=== PATIENT | female | born 1995 ===

== ENCOUNTER 2018-04-09 13:56 | Emergency (ER) | payer BC ==
[~2018-04-09 13:56] MED LIST: CLON-327 PO; DES100PT PO; SULF-198 PO
--- NOTE | 2018-04-09 14:05 | ER Report ---
History and Physical Time Seen By MD: 14:04 HPI/ROS CHIEF COMPLAINT: Adverse reaction to medication HISTORY OF PRESENT ILLNESS: This is a 22-year-old female who presents to the emergency department for concerns of medication reaction. Patient states that 3 days ago she tapered off of her Paxil with her psychologist, then they started Weimert him 2 days ago since then she's had increased dizziness, feels like her skin is crawling, intermittent nausea no vomiting. Patient has been very tearful. Has had episodes of insomnia since starting the medication. Patient decided come in for further evaluation. No chest pain or shortness of breath. No fevers or chills. No suicidal or homicidal thoughts. REVIEW OF SYSTEMS: Constitutional: No fever, no chills. Eyes: No discharge. ENT: No sore throat. Cardiovascular: No chest pain, no palpitations. Respiratory: No cough, no shortness of breath. Gastrointestinal: No abdominal pain, no vomiting. Genitourinary: No hematuria. Musculoskeletal: No back pain. Skin: No rashes. Neurological: As above. Allergies: Coded Allergies: Penicillins (Verified Allergy, Intermediate, HIVES, 01/13/16) mold (Verified Allergy, Intermediate, SOB, 01/13/16) Uncoded Allergies: DUST MITES (Allergy, Intermediate, SOB, 01/13/16) Home Meds Reported Medications Linaclotide (Linzess) 72 Mcg Capsule 04/09/18 Vilazodone Hydrochloride (VIIBRYD) 10 Mg Tablet, 5 MG PO 04/09/18 Discontinued Reported Medications Desvenlafaxine Succinate (PRISTIQ ER) 100 Mg Tabcr, 100 MG PO DAILY 01/13/16 Clonidine Hcl (CLONIDINE HCL) 0.1 Mg Tablet, 0.5 TAB PO HS, TAB 01/13/16 Discontinued Scripts Sulfamethoxazole/Trimet 800-160 Mg Tab (BACTRIM DS TABLET) 1 Each Tablet, 1 TAB PO Q12H, #10 MG 0 Refills TAKE ONE TABLET BY MOUTH EVERY TWELVE HOURS Prov:ANDREW SALAZAR MD 01/13/16 Past Medical/Surgical History The patient has a past medical and surgical history of depression and wears glasses. Anxiety. Unable To Obtain Past Medical: Refused Hx Smoking: No Smoking Status: Never Smoker Hx Substance Use Disorder: No Hx Alcohol Use: No Constitutional Vital Sign - Last 24 Hours 10/06/1504/09/18 04/09/18 04/09/18 14:01 14:01 14:11 14:26 Temp 97.5 Pulse 65 71 ??? Resp 14 B/P (MAP) 110/77 110/77 (88) Pulse Ox 98 100 98 O2 Delivery Room Air 04/09/18 04/09/18 04/09/18 04/09/18 14:41 14:56 15:11 15:26 Pulse ? 59 64 Pulse Ox 99 97 04/09/18 04/09/18 04/09/18 04/09/18 15:41 15:42 15:47 16:00 Pulse 73 75 B/P (MAP) 110/85 (93) 102/74 (83) Pulse Ox 100 100 04/09/18 04/09/18 04/09/18 04/09/18 16:02 16:17 16:30 16:32 Pulse 74 75 76 B/P (MAP) 96/69 (78) Pulse Ox 100 95 95 04/09/18 04/09/18 04/09/18 04/09/18 16:47 17:00 17:02 17:17 Pulse 78 72 ??? B/P (MAP) 98/64 (75) Pulse Ox 96 97 99 04/09/18 04/09/18 17:30 17:32 Pulse ??? B/P (MAP) ???/??? (1665) Physical Exam General Appearance: The patient is alert, has no immediate need for airway protection and no signs of toxicity, tearful. Eyes: Pupils equal and round no pallor or injection. ENT, Mouth: Mucous membranes are moist. Respiratory: There are no retractions, lungs are clear to auscultation. Cardiovascular: Regular rate and rhythm. Gastrointestinal: Abdomen is soft and non tender, no masses, bowel sounds normal. Neurological: Alert and oriented 4. Moving all extremities. Following all commands. No focal neuro deficits. Skin: Warm and dry, no rashes. Musculoskeletal: Neck is supple non tender. Extremities are nontender, nonswollen and have full range of motion. Psychological: Very tearful, anxious and fearful of the medications that she is taken. She does make intermittent eye contact. DIFFERENTIAL DIAGNOSIS: After history and physical exam differential diagnosis was considered for medication reaction, anxiety, depression. Medical Decision Making Data Points Result Diagram: 04/09/18 1501 04/09/18 1501 Laboratory Hematology Test 04/09/18 14:39 04/09/18 15:01 Urine Color Colorless Urine Clarity Clear Urine pH 6.0 pH (4.8-9.5) Urine Specific [place] 1.001 Urine Protein Negative mg/dL (NEGATIVE) Urine Glucose (UA) Negative mg/dL (NEGATIVE) Urine Ketones Negative mg/dL (NEGATIVE) Urine Blood Negative (NEGATIVE) Urine Nitrite Negative (NEGATIVE) Urine Bilirubin Negative (NEGATIVE) Urine Urobilinogen Negative mg/dL (0.2-1.9) Urine Leukocyte Esterase Negative (NEGATIVE) Urine RBC None /HPF (0-2/HPF) Urine WBC <1 /HPF (0-5/HPF) Urine Squamous Epithelial Cells None /LPF (</=FEW) Urine Bacteria Few /HPF (NONE-FEW) Urine Mucus None /HPF (NONE-FEW) Urine HCG, Qualitative Negative (NEGATIVE) Red Blood Count 4.83 M/uL (4.17-5.56) Mean Corpuscular Volume 92.1 fL (80.0-96.0) Mean Corpuscular Hemoglobin 30.6 pg (26.0-33.0) Mean Corpuscular Hemoglobin Concent 33.2 g/dL (32.0-36.0) Red Cell Distribution Width 12.7 % (11.5-14.5) Mean Platelet Volume 7.9 fL (7.2-11.1) Neutrophils (%) (Auto) 60.1 % (39.4-72.5) Lymphocytes (%) (Auto) 29.7 % (17.6-49.6) Monocytes (%) (Auto) 8.9 % (4.1-12.4) Eosinophils (%) (Auto) 0.8 % (0.4-6.7) Basophils (%) (Auto) 0.5 % (0.3-1.4) Nucleated RBC Relative Count (auto) 0.0 /100WBC Neutrophils # (Auto) 4.7 K/uL (2.0-7.4) Lymphocytes # (Auto) 2.3 K/uL (1.3-3.6) Monocytes # (Auto) 0.7 K/uL (0.3-1.0) Eosinophils # (Auto) 0.1 K/uL (0.0-0.5) Basophils # (Auto) 0.0 K/uL (0.0-0.1) Nucleated RBC Absolute Count (auto) 0.00 K/uL Sodium Level 142 mmol/L (137-145) Potassium Level 3.6 mmol/L (3.5-5.0) Chloride Level 103 mmol/L (98-107) Carbon Dioxide Level 25 mmol/L (22-31) Blood Urea Nitrogen 10 mg/dl (7-18) Creatinine 0.70 mg/dl (0.52-1.04) Glomerular Filtration Rate Calc > 60.0 Random Glucose 82 mg/dl (75-110) Calcium Level 9.2 mg/dl (8.4-10.2) Total Bilirubin 0.5 mg/dl (0.2-1.3) Aspartate Amino Transf (AST/SGOT) 22 U/L (0-35) Alanine Aminotransferase (ALT/SGPT) 30 U/L (0-56) Alkaline Phosphatase 69 U/L (0-126) Total Protein 7.5 g/dl (6.3-8.2) Albumin 4.3 g/dl (3.5-5.0) Chemistry Test 04/09/18 14:39 04/09/18 15:01 Urine Color Colorless Urine Clarity Clear Urine pH 6.0 pH (4.8-9.5) Urine Specific [place] 1.001 Urine Protein Negative mg/dL (NEGATIVE) Urine Glucose (UA) Negative mg/dL (NEGATIVE) Urine Ketones Negative mg/dL (NEGATIVE) Urine Blood Negative (NEGATIVE) Urine Nitrite Negative (NEGATIVE) Urine Bilirubin Negative (NEGATIVE) Urine Urobilinogen Negative mg/dL (0.2-1.9) Urine Leukocyte Esterase Negative (NEGATIVE) Urine RBC None /HPF (0-2/HPF) Urine WBC <1 /HPF (0-5/HPF) Urine Squamous Epithelial Cells None /LPF (</=FEW) Urine Bacteria Few /HPF (NONE-FEW) Urine Mucus None /HPF (NONE-FEW) Urine HCG, Qualitative Negative (NEGATIVE) White Blood Count 7.9 k/uL (4.5-11.0) Red Blood Count 4.83 M/uL (4.17-5.56) Hemoglobin 14.8 g/dL (12.0-16.0) Hematocrit 44.5 % (34.0-47.0) Mean Corpuscular Volume 92.1 fL (80.0-96.0) Mean Corpuscular Hemoglobin 30.6 pg (26.0-33.0) Mean Corpuscular Hemoglobin Concent 33.2 g/dL (32.0-36.0) Red Cell Distribution Width 12.7 % (11.5-14.5) Platelet Count 314 K/uL (150-450) Mean Platelet Volume 7.9 fL (7.2-11.1) Neutrophils (%) (Auto) 60.1 % (39.4-72.5) Lymphocytes (%) (Auto) 29.7 % (17.6-49.6) Monocytes (%) (Auto) 8.9 % (4.1-12.4) Eosinophils (%) (Auto) 0.8 % (0.4-6.7) Basophils (%) (Auto) 0.5 % (0.3-1.4) Nucleated RBC Relative Count (auto) 0.0 /100WBC Neutrophils # (Auto) 4.7 K/uL (2.0-7.4) Lymphocytes # (Auto) 2.3 K/uL (1.3-3.6) Monocytes # (Auto) 0.7 K/uL (0.3-1.0) Eosinophils # (Auto) 0.1 K/uL (0.0-0.5) Basophils # (Auto) 0.0 K/uL (0.0-0.1) Nucleated RBC Absolute Count (auto) 0.00 K/uL Glomerular Filtration Rate Calc > 60.0 Calcium Level 9.2 mg/dl (8.4-10.2) Total Bilirubin 0.5 mg/dl (0.2-1.3) Aspartate Amino Transf (AST/SGOT) 22 U/L (0-35) Alanine Aminotransferase (ALT/SGPT) 30 U/L (0-56) Alkaline Phosphatase 69 U/L (0-126) Total Protein 7.5 g/dl (6.3-8.2) Albumin 4.3 g/dl (3.5-5.0) Urinalysis Test 04/09/18 14:39 Urine Color Colorless Urine Clarity Clear Urine pH 6.0 pH (4.8-9.5) Urine Specific [place] 1.001 Urine Protein Negative mg/dL (NEGATIVE) Urine Glucose (UA) Negative mg/dL (NEGATIVE) Urine Ketones Negative mg/dL (NEGATIVE) Urine Blood Negative (NEGATIVE) Urine Nitrite Negative (NEGATIVE) Urine Bilirubin Negative (NEGATIVE) Urine Urobilinogen Negative mg/dL (0.2-1.9) Urine Leukocyte Esterase Negative (NEGATIVE) Urine RBC None /HPF (0-2/HPF) Urine WBC <1 /HPF (0-5/HPF) Urine Squamous Epithelial Cells None /LPF (</=FEW) Urine Bacteria Few /HPF (NONE-FEW) Urine Mucus None /HPF (NONE-FEW) Urine HCG, Qualitative Negative (NEGATIVE) ED Course/Re-evaluation Clinical Indication for ER IV: Hydration, IV Access ED Course The patient was in his room. History and physical obtained. Differential diagnoses were considered. An IV was started. A CBC, CMP were obtained. Lab studies unremarkable. Negative urine. Negative hCG. I did go back in to review the results with the patient, she is very tearful and crying, I did suggest a one-time dose of Ativan to see if this would help her relax, patient agreed. I did give her 1 mg IV Ativan. Patient responded well to this, she states she is feeling better. Patient was also given 4 mg IV Zofran, prior to departure she had some transient nausea, she was given one 4 mg ODT Zofran. I did encourage the patient to follow-up as soon as possible early next week for reevaluation with the [facility] mental health services, even following up with [facility] for reevaluation would be prudent. Patient agreed. Patient will return to the ER for any other concerns worsening symptoms. Patient was also evaluated by one of the behavioral health techs, the provider her with some information on depression and anxiety and encouraged her to contact them at any time. Patient denied any suicidal or homicidal thoughts was she was here in the emergency department. Decision to Disposition Date: Apr 09, 2018 Decision to Disposition Time: 17:31 Depart Departure Latest Vital Signs Vital Signs Date Time Temp Pulse Resp B/P (MAP) Pulse Ox O2 Delivery O2 Flow Rate FiO2 04/09/18 17:32 ??? 04/09/18 17:30 ???/??? (1665) 04/09/18 17:17 99 04/09/18 14:01 97.5 14 Room Air Impression: Primary Impression: Depression Additional Impression: Adverse reaction to SSRI antidepressant drug Condition: Improved Disposition: HOME OR SELF-CARE Referrals: [facility] Patient Instructions: Adverse Drug Reaction (ED), Depression (ED) Additional Instructions: I would like you to follow-up with the [facility] counseling services early next week for reevaluation. Stop taking the Viibryd. If you have any other concerns please utilize the resources that the behavioral health gave you. Drink plenty of water. Get plenty of rest. Return to the ER for any other concerns or worsening symptoms. Problem Qualifiers Primary Impression: Depression Depression Type: unspecified Qualified Codes: F32.9 - Major depressive disorder, single episode, unspecified Additional Impression: Adverse reaction to SSRI antidepressant drug Encounter type: initial encounter Qualified Codes: T43.225A - Adverse effect of selective serotonin reuptake inhibitors, initial encounter MARLENE ROMEO PROJECTION ENGINEER-BC Apr 09, 2018 14:05
[2018-04-09] MEDS ORDERED: VILA10TA PO (14:07)
[2018-04-09] MEDS ORDERED: NS(*) 0.9% 1000 ML BAG 1,000 ML IV ONE (14:20)
--- NOTE | 2018-04-09 14:37 | EKG ---
FAC[facility] PATIENT NAME: SAMANTHA MCCABE : [id number] MR: [id number] V: [id number] EXAM DATE: ORDERING PHYSICIAN: MARLENE ROMEO TECHNOLOGIST: Test Reason : dizziness Blood Pressure : / mmHG Vent. Rate : 066 BPM Atrial Rate : 066 BPM P-R Int : 138 ms QRS Dur : 076 ms QT Int : 420 ms P-R-T Axes : 071 071 059 degrees QTc Int : 440 ms Sinus arrhythmia No acute appearing findings Confirmed by LONNIE OBREGON ([id number]) on 04/09/2018 7:46:06 PM Referred By: Confirmed By:LONNIE OBREGON
[2018-04-09 15:16] LABS: PLATELET COUNT, AUTOMATED 314 K/uL (150-450)
[2018-04-09] MEDS ORDERED: LORazepam 2 MG/ML VIAL IVP ONE (15:40)
[2018-04-09] MEDS ORDERED: LINA72CA (16:00)
[2018-04-09] MEDS ORDERED: ONDANSETRON 4 MG ODT TABDP SL ONE (17:35)
[2018-04-09] MEDS ORDERED: ONDANSETRON 4 MG ODT TH SL ONE (17:35)
== END 2018-04-09 17:50 | disposition home or self-care (01) ==
LOC: ER 14:16
DX: F32.9 Major depressive disorder, single episode, unspecified (principal); T43.225A Adverse effect of selective serotonin reuptake inhibitors, initial encounter; I49.9 Cardiac arrhythmia, unspecified
CPT/HCPCS: 81001; 81025; 85025; 93005; 96361; 96374; 99284; J2060; J7030; S0119; 82040; 82247; 82310; 82374; 82435; 82565; 82947; 84075; 84132; 84155; 84295; 84450; 84460; 84520